=== PATIENT | female | born 2000 | race Hispanic/Latino ===

== ENCOUNTER 2024-02-16 02:13 | Emergency (ER) | payer SELFPAY ==
[2024-02-16] MEDS ORDERED: NA CHLORIDE 0.9% 1,000 ML ONE (03:36)
[2024-02-16] MEDS ORDERED: METOCLOPRAMIDE 10 MG/2mL INJ ONE (03:36)
[2024-02-16] MEDS ORDERED: KETOROLAC 30 MG/ML INJ ONE (03:36)
[2024-02-16] MEDS ORDERED: DIPHENHYDRAMINE 50 MG/ML VIAL ONE (03:36)
[2024-02-16 03:53] LABS: Specific Gravity 1.025 (1.005-1.030)
[2024-02-16 04:01] LABS: Absolute Eosinophils 0.1 K/uL (0-0.5); Absolute Lymphocytes (CBC) 2.4 K/uL (0.7-4.9); Absolute Monocytes 0.5 K/uL (0.1-1.3); Absolute Neutrophil 5.3 K/uL (1.8-8.0); Basophils % 0.1 % (0-1.3); Hematocrit 35.1 % (36.0-45.0); Hemoglobin 12.1 g/dL (12.0-15.0); MCH 31.2 pg (27.0-35.0); MCHC 34.4 g/dL (32.0-36.0); MCV 90.8 fL (80-100); MPV 8.2 fL (7.6-11.3); Monocytes % 6.2 % (3.3-12.3); Neutrophils % 63.7 % (41.7-73.7); Nucleated Red Blood Cells % 0.1 % (0-0); Platelets 286 thou/uL (152-406); RBC Red Blood Cell Count 3.86 M/uL (3.86-4.86); Red Cell Distribution Width 13.2 % (12.1-15.2)
[2024-02-16 04:11] LABS: Albumin 3.9 g/dL (3.4-5.0); Anion Gap 5.6 mEq/L (5.0-15.0); Bilirubin Total 0.4 mg/dL (0.2-1.0); Globulin 3.8 g/dL (2.3-3.5); Potassium 3.6 mEq/L (3.5-5.1); Protein, Total 7.7 g/dL (6.4-8.2)
--- NOTE | 2024-02-16 06:02 | ER ---
Nurse's Notes [facility] Name: Candi Cedeno Age: 23 yrs Sex: Female : 2000 Arrival Date: 02/16/2024 Time: 02:13 Bed 9 Private MD: Diagnosis: Episodic tension-type headache Presentation: 02/15 03:13 Chief complaint: Patient states: headache pain of 10 with nausea,onset Wednesday. pf1 Coronavirus screen: Vaccine status: Patient reports being unvaccinated. Client denies travel out of the [place] in the last 14 days. At this time, the client does not indicate any symptoms associated with coronavirus-19. Ebola Screen: Patient negative for fever greater than or equal to 101.5 degrees Fahrenheit, and additional compatible Ebola Virus Disease symptoms. Initial Sepsis Screen: Does the patient meet any 2 criteria? No. Patient's initial sepsis screen is negative. Does the patient have a suspected source of infection? No. Patient's initial sepsis screen is negative. Risk Assessment: Do you want to hurt yourself or someone else? Patient reports no desire to harm self or others. Onset of symptoms was February 15, 2024. 03:13 Method Of Arrival: Ambulatory pf1 03:13 Acuity: ORAL 3 pf1 Triage Assessment: 03:19 Headache History: The patient has had previous headaches and this one is different than pf1 previous episodes. General: Appears in no apparent distress. comfortable, well groomed, well developed, Behavior is calm, cooperative, appropriate for age, quiet. Pain: Complains of pain in head and back of head Pain currently is 10 out of 10 on a pain scale. Neuro: Reports headache in right in left frontal area, occipital area. GI: Reports nausea. Historical: - Allergies: 03:17 No Known Allergies; pf1 - PMHx: 03:17 None; pf1 - PSHx: 03:17 None; pf1 - Immunization history:: Adult Immunizations up to date, Client reports having NOT received the Covid vaccine. Last tetanus immunization: < 10 years ago Flu vaccine is not up to date. - Infectious Disease History:: Denies. - Social history:: Smoking status: Patient denies any tobacco usage or history of. Patient/guardian denies using alcohol, street drugs. - Family history:: not pertinent. Screenin:26 [facility] ED Fall Risk Assessment (Adult) History of falling in the last 3 months, pf1 including since admission Confusion or Disorientation No (0 pts) Intoxicated or Sedated No (0 pts) Impaired Gait No (0 pts) Mobility Assist Device Used No (0 pt) Altered Elimination No (0 pt) Score/Fall Risk Level 0 - 2 = Low Risk Oriented to surroundings, Maintained a safe environment, Educated pt \T\ family on fall prevention, incl call for assistance when getting out of bed, Assessed \T\ reinforced patient's understanding of fall precautions, Provided non-skid footwear, Hourly rounding (assess needs \T\ fall precautionary measures) done, Used ambulatory aids as needed (educated on \T\ assisted with), Used gait belt as appropriate. 03:26 Abuse screen: Denies threats or abuse. Nutritional screening: No deficits noted. pf1 Tuberculosis screening: No symptoms or risk factors identified. Assessment: 03:20 General: Appears in no apparent distress. uncomfortable, Behavior is calm, cooperative, jj7 appropriate for age. Pain: Complains of pain in head, back of head and face. Neuro: Reports headache occipital area. 03:20 GI: Reports nausea. jj7 Vital Signs: 03:13 BP 120 / 80; Pulse 81; Resp 16; Temp 97.1; Pulse Ox 100% on R/A; Weight 68.04 kg; pf1 Height 5 ft. 1 in. ; Pain 10/10; 04:30 BP 118 / 79; Pulse 79; Resp 20; Pulse Ox 99% ; jj7 05:30 BP 124 / 76; Pulse 82; Resp 19; Pulse Ox 100% ; jj7 06:17 BP 122 / 85; Pulse 78; Resp 20; Pulse Ox 100% ; jj7 03:13 Body Mass Index 28.34 (68.04 kg, 154.94 cm) pf1 03:13 Pain Scale: Adult pf1 Lulu Coma Score: 05:52 Eye Response: spontaneous(4). Motor Response: obeys commands(6). Verbal Response: sp4 oriented(5). Total: 15. 05:57 Eye Response: spontaneous(4). Motor Response: obeys commands(6). Verbal Response: sp4 oriented(5). Total: 15. ED Course: 02:19 Patient arrived in ED. gm2 02:55 Juventino Gallegos MD is Attending Physician. sp4 03:17 Triage completed. pf1 03:19 Arm band placed on right wrist. pf1 03:20 Patient has correct armband on for positive identification. Bed in low position. Call jj7 light in reach. Provided Education on: use of call wheeler. Lights dimmed. Warm blanket given. 03:30 Urine collected: clean catch specimen, clear, Amount Voided: 75mL. pf1 03:34 CT Head Brain wo Cont In Process Unspecified. EDMS 03:39 Test, Urine Sent. pf1 03:40 No provider procedures requiring assistance completed. Initial lab(s) drawn, by ED pf1 staff, sent to lab. Inserted saline lock: 22 gauge in left antecubital area, using aseptic technique. Blood collected. 03:40 CBC with Diff Sent. pf1 03:40 CMP Sent. pf1 03:46 Test, Urine Sent. pf1 06:00 Nuno Spivey DO is Referral Physician. sp4 06:18 IV discontinued, intact, bleeding controlled, No redness/swelling at site. Pressure pf1 dressing applied. Administered Medications: 03:59 Drug: Ketorolac IVP 30 mg IVP once Route: IVP; Site: left antecubital; pf1 04:50 Follow up: Response: No adverse reaction; Marked relief of symptoms; Pain is decreased pf1 03:59 Drug: metoCLOPramide IVP 10 mg IVP once; over 1 to 2 minutes Route: IVP; Site: left pf1 antecubital; 04:50 Follow up: Response: No adverse reaction; Marked relief of symptoms pf1 03:59 Drug: diphenhydrAMINE IVP 25 mg IVP once Route: IVP; Site: left antecubital; pf1 04:50 Follow up: Response: No adverse reaction; Marked relief of symptoms pf1 03:59 Drug: NS 0.9% IV 1000 ml IV at 1 bolus Per protocol; 1000 mL bolus Route: IV; Rate: 1 pf1 bolus; Site: left antecubital; 05:00 Follow up: Response: No adverse reaction; Marked relief of symptoms; IV Status: pf1 Completed infusion; IV Intake: 1000ml Medication: 03:20 VIS not applicable for this client. jj7 Intake: 05:00 IV: 1000ml; Total: 1000ml. pf1 Outcome: 06:01 Discharge ordered by MD. patel 06:17 Discharged to home ambulatory, pf1 06:17 Condition: improved 06:17 Discharge instructions given to patient, Instructed on discharge instructions, follow up and referral plans. Demonstrated understanding of instructions, follow-up care, medications, Prescriptions given X 1, 06:18 Patient left the ED. pf1 Signatures: Dispatcher [employer] EDTrish Ramirez RN RN jj7 Enriqueta Buenrostro RN RN pf1 Juventino Gallegos MD MD sp4 Cristina Coy 2
--- NOTE | 2024-02-16 06:02 | EDPHYS ---
Physician Documentation [facility] Name: Candi Cedeno Age: 23 yrs Sex: Female : 2000 Arrival Date: 02/16/2024 Time: 02:13 Bed 9 Private MD: ED Physician Juventino Gallegos HPI: 02/15 02:56 This 23 yrs old Female presents to ER via Unassigned with complaints of sp4 Headache, Nausea, Pain. 05:57 This is 23-year-old female who presents with acute onset headache bilateral sharp sp4 stabbing headache starting at the in the afternoon yesterday. Patient reports the nausea and also some burning sensation with a headache. This is a new onset headache no prior similar headaches. . Historical: - Allergies: 03:17 No Known Allergies; pf1 - PMHx: 03:17 None; pf1 - PSHx: 03:17 None; pf1 - Immunization history:: Adult Immunizations up to date, Client reports having NOT received the Covid vaccine. Last tetanus immunization: < 10 years ago Flu vaccine is not up to date. - Infectious Disease History:: Denies. - Social history:: Smoking status: Patient denies any tobacco usage or history of. Patient/guardian denies using alcohol, street drugs. - Family history:: not pertinent. ROS: 05:57 Constitutional: Negative for fever, chills, and weight loss, positive for headache sp4 05:57 All other systems are negative, Exam: 05:57 Constitutional: This is a well developed, well nourished patient who is awake, alert, sp4 and in no acute distress. Head/Face: Normocephalic, atraumatic. Eyes: Pupils equal round and reactive to light, extra-ocular motions intact. Lids and lashes normal. Conjunctiva and sclera are not injected. Cornea within normal limits. Periorbital areas with no swelling, redness, or edema. ENT: Nares patent. No nasal discharge, no septal abnormalities noted. Tympanic membranes are normal and external auditory canals are clear. Oropharynx with no redness, swelling, or masses, exudates, or evidence of obstruction, uvula midline. Mucous membranes moist. Neck: Trachea midline, no thyromegaly or masses palpated, and no cervical lymphadenopathy. Supple, full range of motion without nuchal rigidity, or vertebral point tenderness. Chest/axilla: Normal chest wall appearance and motion. Nontender with no deformity. No lesions are appreciated. Cardiovascular: Regular rate and rhythm with a normal S1 and S2. No gallops, murmurs, or rubs. Normal PMI, no JVD. No pulse deficits. Respiratory: Lungs have equal breath sounds bilaterally, clear to auscultation and percussion. No rales, rhonchi or wheezes noted. No increased work of breathing, no retractions or nasal flaring. Abdomen/GI: Soft, with normal bowel sounds. No distension or tympany. No guarding or rebound. No evidence of tenderness throughout. Back: No spinal tenderness. No costovertebral tenderness. Skin: Warm, dry with normal turgor. Normal color with no rashes, no lesions, and no evidence of cellulitis. MS/ Extremity: Pulses equal, no cyanosis. Neurovascular intact. Full, normal range of motion. Neuro: Awake and alert, GCS 15, oriented to person, place, time, and situation. Cranial nerves II-XII grossly intact. Motor strength 5/5 in all extremities. Sensory grossly intact. Psych: Awake, alert, with orientation to person, place and time. Behavior, mood, and affect are within normal limits Vital Signs: 03:13 BP 120 / 80; Pulse 81; Resp 16; Temp 97.1; Pulse Ox 100% on R/A; Weight 68.04 kg; pf1 Height 5 ft. 1 in. ; Pain 10/10; 04:30 BP 118 / 79; Pulse 79; Resp 20; Pulse Ox 99% ; jj7 05:30 BP 124 / 76; Pulse 82; Resp 19; Pulse Ox 100% ; jj7 06:17 BP 122 / 85; Pulse 78; Resp 20; Pulse Ox 100% ; jj7 03:13 Body Mass Index 28.34 (68.04 kg, 154.94 cm) pf1 03:13 Pain Scale: Adult pf1 Florence Coma Score: 05:52 Eye Response: spontaneous(4). Motor Response: obeys commands(6). Verbal Response: sp4 oriented(5). Total: 15. 05:57 Eye Response: spontaneous(4). Motor Response: obeys commands(6). Verbal Response: sp4 oriented(5). Total: 15. MDM: 02:56 Patient medically screened. sp4 05:52 ED course: EXAMINATION: CT HEAD WITHOUT IV CONTRAST INDICATION: Female, 23 years old, sp4 acute headache COMPARISON(S): None. TECHNIQUE: CT acquisition of the head without contrast. Coronal and sagittal reformatted images provided. This exam was performed according to departmental dose-optimization program which includes automated exposure control, adjustment of the mA and/or kV according to patient size, and/or use of iterative reconstruction technique. FINDINGS: No intracranial hemorrhage or extraaxial fluid collection. No mass effect or midline shift. Ventricles, cisterns, and sulci are normal in size and configuration. Brain parenchymal attenuation and quintanilla-white matter differentiation are within normal limits. The calvarium and imaged facial bones are intact. Overlying soft tissues are normal. The visualized paranasal sinuses and mastoid cells are clear. Orbits are unremarkable. IMPRESSION: No acute intracranial findings. . 05:57 Differential diagnosis: cluster headache, hypertensive headache, hypoglycemia, sp4 migraine, tension headache, vasomotor headache. Data reviewed: vital signs, nurses notes, lab test result(s), UPT: negative radiologic studies, CT scan. ED course: CT head is normal today. Headache has resolved with medications. Patient stable for discharge home. Will prescribe as needed Fioricet. 02/15 03:10 Order name: CBC with Diff; Complete Time: 05:49 sp4 02/15 03:10 Order name: CMP; Complete Time: 05:49 sp4 02/15 03:10 Order name: Test, Urine; Complete Time: 05:49 sp4 02/15 03:08 Order name: CT Head Brain wo Cont sp4 02/15 03:10 Order name: IV Saline Lock; Complete Time: 03:40 sp4 02/15 03:10 Order name: Labs collected and sent; Complete Time: 03:40 sp4 Administered Medications: 03:59 Drug: Ketorolac IVP 30 mg IVP once Route: IVP; Site: left antecubital; pf1 04:50 Follow up: Response: No adverse reaction; Marked relief of symptoms; Pain is decreased pf1 03:59 Drug: metoCLOPramide IVP 10 mg IVP once; over 1 to 2 minutes Route: IVP; Site: left pf1 antecubital; 04:50 Follow up: Response: No adverse reaction; Marked relief of symptoms pf1 03:59 Drug: diphenhydrAMINE IVP 25 mg IVP once Route: IVP; Site: left antecubital; pf1 04:50 Follow up: Response: No adverse reaction; Marked relief of symptoms pf1 03:59 Drug: NS 0.9% IV 1000 ml IV at 1 bolus Per protocol; 1000 mL bolus Route: IV; Rate: 1 pf1 bolus; Site: left antecubital; 05:00 Follow up: Response: No adverse reaction; Marked relief of symptoms; IV Status: pf1 Completed infusion; IV Intake: 1000ml Disposition Summary: 02/16/24 06:01 Discharge Ordered Notes: Location: Home sp4 Problem: new sp4 Symptoms: have improved sp4 Condition: Stable sp4 Diagnosis - Episodic tension-type headache sp4 Followup: sp4 - With: Nuno Spivey DO - When: 7 - 10 days - Reason: Recheck today's complaints Discharge Instructions: - Discharge Summary Sheet sp4 - General Headache Without Cause sp4 Forms: - Patient Portal Instructions sp4 Prescriptions: - Fioricet 50-300-40 mg Oral capsule - take 1 capsule ORAL route every 8 hours PRN headache; 30 capsule; Refills: 0, sp4 Product Selection Permitted Signatures: Dispatcher [employer] Enriqueta Gan RN RN pf1 Juventino Gallegos MD MD sp4
[2024-02-16 06:24] VITALS: BP 120/80; TEMP 97.1; O2SAT 100
--- NOTE | 2024-02-16 11:00 | RAD REPORT ---
EXAM DESCRIPTION: CT HEAD WITHOUT IV CONTRAST CLINICAL HISTORY: Female, 23 years old, acute headache COMPARISON: None. TECHNIQUE: CT acquisition of the head without contrast. Coronal and sagittal reformatted images prov ided. This exam was performed according to departmental dose-optimization program which includes auto mated exposure control, adjustment of the mA and/or kV according to patient size, and/or use of itera tive reconstruction technique. FINDINGS: No intracranial hemorrhage or extraaxial fluid collection. No mass effect or midline shift. Ventricles, cisterns, and sulci are normal in size and configuration. Brain parenchymal attenuation and quintanilla-white matter differentiation are within normal limits. The calvarium and imaged facial bones are intact. Overlying soft tissues are normal. The visualized paranasal sinuses and mastoid cells are clear. Orbits are unremarkable. IMPRESSION: No acute intracranial findings. Electronically signed by: Jarett Morrison MD 02/16/2024 04:15 AM CDT Due to temporary technical issues with the PACS/Fluency reporting system, reports are being signed by the in house radiologist without review as a courtesy to ensure prompt reporting. The interpreting r adiologist is fully responsible for the content of the report.
== END 2024-02-16 06:18 | disposition home or self-care (01) ==
LOC: ER 02:13
DX: G44.219 Episodic tension-type headache, not intractable (principal)
CPT/HCPCS: 36415; 70450; 80053; 81025; 85025; J1200; J2765; J7030